=== PATIENT | female | born 1990 ===

== ENCOUNTER → 2019-02-13 | Outpatient (REF) | payer BC | LOC: M LAB REF 19:31 | PROVIDERS: ATTEND Physician Assistant Medical | DX: N76.0 Acute vaginitis (principal) ==

== ENCOUNTER → 2019-02-16 | Outpatient (REF) | payer BC ==
[2019-02-16 19:40] LABS: CHLAMYDIA DNA AMPLIFICATION NEGATIVE (NEGATIVE); GC DNA AMPLIFICATION NEGATIVE (NEGATIVE)
== END ==
LOC: M LAB REF 09:58
PROVIDERS: ATTEND Physician Assistant
DX: N76.0 Acute vaginitis (principal)